=== PATIENT | male | born 1955 | race Caucasian/White ===

== ENCOUNTER 2020-07-01 22:47 | Inpatient (IN) | payer MEDICARE ==
[~2020-07-01] VITALS: Ht 180.3 cm; Wt 89.4 kg
[2020-07-01 22:48] VITALS: BP 147/95; BP 170/90
[2020-07-01] MEDS ORDERED: TOPROL XL25 MG PO (23:06)
[2020-07-01] MEDS ORDERED: BRILINTA90 MG PO (23:06)
[2020-07-01] MEDS ORDERED: TRAZODONE PO (23:07)
[2020-07-01 23:25] LABS: ABSOLUTE BASOPHILS 0.1 thou/uL (0.0-0.2); ABSOLUTE EOSINOPHILS 0.1 thou/uL (0.0-0.7); ABSOLUTE LYMPHOCYTES 1.1 thou/uL (0.8-5.3); ABSOLUTE MONOCYTES 0.5 thou/uL (0.0-1.2); BASOPHILS 0.8 %; EOSINOPHILS 1.9 %; HEMATOCRIT 43.1 % (42.0-52.0); HEMOGLOBIN 14.9 gm/dL (14.0-18.0); LYMPHOCYTES 16.2 %; MCH 30.9 pg (26.0-34.0); MCHC 34.4 g/dL (28.0-37.0); MCV 89.7 fL (80.0-100.0); MONOCYTES 6.9 %; MPV 6.7 fl. (7.2-11.1); NUCLEATED RBCS 0 /100WBC; PLATELET COUNT* 276 thou/uL (150-400); POLYS 74.2 %; RBC 4.81 mil/uL (4.50-6.00); RDW-CV 13.6 % (10.5-14.5); WBC 6.7 thou/uL (4.0-11.0)
[2020-07-01 23:38] LABS: PROTIME 10.9 Seconds (9.20-11.50)
[2020-07-01 23:43] LABS: CALCIUM 9.6 mg/dL (8.5-10.1); CREATININE 1.4 mg/dL (0.6-1.3); POTASSIUM 3.7 mmol/L (3.5-5.1)
[2020-07-01 23:56] LABS: ALBUMIN 3.4 g/dL (3.4-5.0); MAGNESIUM 2.3 mg/dL (1.8-2.4); TOTAL BILIRUBIN 0.4 mg/dL (<0.1-1.0); TOTAL PROTEIN 7.4 g/dL (6.4-8.2)
[2020-07-02 03:20] VITALS: BP 136/84
[2020-07-02 04:00] VITALS: BP 147/76
--- NOTE | 2020-07-02 04:00 | NUR ---
RECEIVED REPORT FROM ER, PT TO ROOM PER CART. PT VERY SLEEPY WITH DIFFICULTY KEEPING AWAKE FOR ADMISSION QUESTIONS. TELEMETRY APPLIED SHOWING SR. PLACED IN SPECIAL ISOLATION FOR PENDING C-DIFF. ASSISTED TO BSC FOR LG LIQ FOUL DIARRHEA STOOL. RETURNED TO SLEEP. NPO AT THIS TIME. SEE ADMISSION ASSESSMENT AND HX.
[2020-07-02 08:30] VITALS: BP 111/85
--- NOTE | 2020-07-02 08:56 | EKG ---
[place] [address] ELECTROCARDIOGRAM REPORT Name: KAILEY SANTORO Room: [address] [place] [facility]#: [id number] Admission: 07/02/20 Attend Phys: Sujata Segura MD Discharge: 07/04/20 Date of : 51 Date of Service: 07/01/20 2249 Report #: [id number] THIS REPORT FOR: //name// [facility] ED Test Date: 2020-07-01 Test Time: 22:49:57 Pat Name: SIVAKUMAR SANTORO Department: Room: [facility] Gender: M Help Desk Agent: ERIBERTO : 1955 Requested By: Sophy Jean-Baptiste Order Number: [id number] MD: Varinder Thomason Measurements Intervals [place] Rate: 66 P: 57 IA: 151 QRS: 61 QRSD: 109 T: 27 QT: 421 QTc: 442 Interpretive Statements Sinus rhythm Left atrial enlargement Baseline wander in lead(s) V2 No previous ECG available for comparison Electronically Signed On 07-02-2020 8:55:46 BUDGET REPORT CLERK by Varinder Thomason [email or web address] <ELECTRONICALLY SIGNED> By: Varinder Thomason MD, FAC 07/02/20 0855 2249 2249 Varinder Thomason MD, [facility] /EPI
[2020-07-02 08:58] LABS: CALCIUM 8.6 mg/dL (8.5-10.1); CREATININE 1.3 mg/dL (0.6-1.3); POTASSIUM 3.5 mmol/L (3.5-5.1)
[2020-07-02 09:01] LABS: MAGNESIUM 2.2 mg/dL (1.8-2.4); PHOSPHORUS* 2.3 mg/dL (2.5-4.9)
[2020-07-02 11:30] VITALS: BP 120/67
[2020-07-02 14:35] LABS: HEMATOCRIT 44.8 % (42.0-52.0); HEMOGLOBIN 14.8 gm/dL (14.0-18.0)
[2020-07-02 16:00] VITALS: BP 97/56
--- NOTE | 2020-07-02 18:03 | NUR ---
PT UP TO BSC FREQUENTLY WITH LOOSE STOOLS. PT STATED HE HAD NOT VOIDED SINCE YESTERDAY BUT BLADDER SCANNER REVEALED APPROX 400 ML. VOIDED THIS AFTERNOON BUT MIXED WITH STOOL SO UNABLE TO OBTAIN URINE SPECIMEN. IVF DC THIS AFTERNOON. PT TOLERATING PO WELL. NSR ON MONITOR
[2020-07-02 20:30] VITALS: BP 95/55
[2020-07-03] VITALS: BP 98/48
[2020-07-03 04:00] VITALS: BP 93/48
[2020-07-03 07:08] LABS: GLYCOHEMOGLOBIN (HGB A1C) 6.1 % (4.8-5.6)
[2020-07-03 08:00] VITALS: BP 99/52
[2020-07-03 08:06] LABS: HEMATOCRIT 39.3 % (42.0-52.0); HEMOGLOBIN 13.3 gm/dL (14.0-18.0); MCH 30.6 pg (26.0-34.0); MCHC 33.8 g/dL (28.0-37.0); MCV 90.7 fL (80.0-100.0); MPV 6.8 fl. (7.2-11.1); RBC 4.33 mil/uL (4.50-6.00); WBC 5.8 thou/uL (4.0-11.0)
[2020-07-03 08:11] LABS: CALCIUM 7.8 mg/dL (8.5-10.1); CREATININE 1.4 mg/dL (0.6-1.3); MAGNESIUM 2.2 mg/dL (1.8-2.4); POTASSIUM 3.7 mmol/L (3.5-5.1)
--- NOTE | 2020-07-03 10:30 | NUR ---
CM SPOKE TO THE PT TO DISCUSS CM ASSESSMENT. PT A&O, AND INDEPENDENT WITH ADL'S. PT INFORMS THAT HE CURRENTLY RESIDES AT AN EXTENDED STAY MOTEL ALONE. PT USES 0 DME. PT HAS 0 HX OF HH OR SNF. PT DOES NOT ANTICIPATE ANY D/C PLANNING NEEDS AND IS HOPEFUL TO D/C HOME TODAY WITH NO NEEDS. CM WILL REMAIN AVAILABLE TO ASSIST AND FOLLOW NEEDED.
[2020-07-03 12:26] VITALS: BP 94/47
[2020-07-03 16:57] VITALS: BP 117/48
[2020-07-03 18:36] LABS: URINE BILIRUBIN NEGATIVE (Negative); URINE BLOOD NEGATIVE (Negative); URINE CLARITY CLEAR; URINE COLOR YELLOW; URINE GLUCOSE-RANDOM NEGATIVE (Negative); URINE KETONES NEGATIVE (Negative); URINE LEUKOCYTES-REFLEX NEGATIVE (Negative); URINE NITRITE-REFLEX NEGATIVE (Negative); URINE PROTEIN NEGATIVE (Negative); URINE SPECIFIC GRAVITY 1.015 (1.005-1.030); URINE UROBILINOGEN 0.2 E.U./dl (0.2-1.0)
--- NOTE | 2020-07-03 18:48 | NUR ---
[place] [address] HE IS ALERT AND ORIENTED X4 AND IS UP AD ALLY. BED IS IN THE LOW LOCKED POSITION AND CALL LIGHT IS IN REACH. HOURLY ROUNDING IS COMPLETED AND PATIENT NEEDS ARE MET. PAIN IS DENIED. ISOLATION IS MAINTAINED. URINE SPECIMEN WAS SENT. HE PLANS TO DISCHARGE TOMORROW. HE DID NOT HAVE ANY REACTIONS TO ANTIBIOTICS TODAY SO BENADRYL WASN'T NEEDED. BLOOD GLUCOSE WAS MONITORED AND INSULIN WAS NOT INDICATED. WILL CONTINUE TO MONITOR.
[2020-07-03 20:30] VITALS: BP 122/61
[2020-07-04] VITALS: BP 149/72
[2020-07-04 03:50] VITALS: BP 135/75
--- NOTE | 2020-07-04 05:50 | NUR ---
PATIENT SLEPT MOST OF THE NIGHT. IV REMAINS SALINE LOCKED. PATIENT HAD NO COMPLAINTS OF PAIN. PATIENT IS POSSIBLY GOING HOME HOME TODAY. WILL CONTINUE TO MONITOR.
[2020-07-04 07:50] VITALS: BP 127/66
[2020-07-04] MEDS ORDERED: ASA81BEC PO (08:36)
[2020-07-04] MEDS ORDERED: FLAGYL500 M1 PO (08:36)
[2020-07-04] MEDS ORDERED: CIPRO500 M1 PO (08:36)
[2020-07-04] MEDS ORDERED: PROTONIX40 M2 PO (08:38)
[2020-07-04 10:52] VITALS: BP 127/66
[2020-07-04 11:59] VITALS: BP 127/66
--- NOTE | 2020-07-04 12:00 | NUR ---
PATIENT GIVEN DISCHARGE INSTRUCTIONS, ALONG WITH NEW PRESCRIPTION DRUG INFO SHEETS. MEDICATIONS REVIEWED. IV REMOVED EARLIER DUE TO INFILTRATION. PATIENT TOOK SHOWER INDEPENDENTLY PRIOR TO DISCHARGE. PATIENT DENIES PAIN/QUESTIONS/CONCERNS PRIOR TO DISCHARGE. PATIENT LEFT UNIT WITH PERSONAL BELONGINGS VIA WHEELCHAIR ACCOMPANIED BY NURSING STAFF AT APPROX. 1150 TO MEET FATHER IN ER FOR RIDE HOME.
== END 2020-07-04 11:50 | disposition home or self-care (01) | DRG 371 ==
LOC: M.ERS 22:47 → M.2W 07-02 02:32 → M.TBA-ER 07-02 02:32 → M.2W 07-02 03:23
PROVIDERS: Emergency Medicine; Internal Medicine; ADMIT Family Medicine; ATTEND Family Medicine
DX: A04.9 Bacterial intestinal infection, unspecified (principal); N17.0 Acute kidney failure with tubular necrosis; K21.00 Gastro-esophageal reflux disease with esophagitis, without bleeding; I25.10 Atherosclerotic heart disease of native coronary artery without angina pectoris; F19.10 Other psychoactive substance abuse, uncomplicated; E11.65 Type 2 diabetes mellitus with hyperglycemia; Z20.822 Contact with and (suspected) exposure to COVID-19; Z95.5 Presence of coronary angioplasty implant and graft; Z86.73 Personal history of transient ischemic attack (TIA), and cerebral infarction without residual deficits; Z79.899 Other long term (current) drug therapy; Z95.1 Presence of aortocoronary bypass graft